=== PATIENT | female | born 1935 | race Caucasian/White ===

== ENCOUNTER → 2018-03-12 | Outpatient (CLI) | payer MEDICARE | END | disposition home or self-care (01) | LOC: CFH 10:26 | PROVIDERS: ATTEND Internal Medicine | DX: Z13.820 Encounter for screening for osteoporosis (principal); M81.0 Age-related osteoporosis without current pathological fracture; M85.80 Other specified disorders of bone density and structure, unspecified site | CPT/HCPCS: 77080 ==

== ENCOUNTER → 2021-01-01 | Outpatient (CLI) | payer MEDICARE ==
[~2021-01-01] MED LIST: CALC1CAP8 PO; FLUT9.9S NS; LEVO75TA59 PO; LOSA25TA25 PO; METR55GE2 TP; OMEG1CAP23 PO; TRAV5DRO EACHEYE; UBID100C41 PO; VIT1CAPS16 PO; [UNRECOGNIZED DRUG - CODE] TP
[2021-01-01 10:40] LABS: MICROSCOPIC NOT IND
[2021-01-01 11:01] LABS: ANION GAP 6 mmol/L (5-15); CHLORIDE 104 mmol/L (98-107)
[2021-01-01 11:02] LABS: ANION GAP 5 mmol/L (5-15); CHLORIDE 104 mmol/L (98-107)
[2021-01-01 11:03] LABS: INTERNATIONAL NORMALIZED RATIO 0.93 (0.93-1.1); PROTHROMBIN TIME 9.9 Seconds (9.6-11.5)
[2021-01-01 11:04] LABS: CREATININE 0.83 mg/dL (0.55-1.02)
[2021-01-01 11:08] LABS: ALANINE AMINOTRANSFERASE 24 U/L (12-78); ALKALINE PHOSPHATASE 56 U/L (45-117); BASOPHILS % (AUTO) 1 % (0-1); BILIRUBIN,TOTAL 0.7 mg/dL (0.2-1.0); CREATININE 0.79 mg/dL (0.55-1.02); EOSINOPHILS % (AUTO) 2 % (1-7); LYMPHOCYTES % (AUTO) 36 % (22-44); MEAN CORPUSCULAR HEMOGLOBIN 32.8 pg (27.0-34.8); MEAN PLATELET VOLUME 8.2 fL (7.4-10.4); MONOCYTES % (AUTO) 9 % (2-9); NEUTROPHILS % (AUTO) 53 % (42-75); PLATELET COUNT 180 x10^3/uL (130-400); RED BLOOD COUNT 4.39 x10^6/uL (3.82-5.3); RED CELL DISTRIBUTION WIDTH 13.3 % (9.6-15.2); TOTAL PROTEIN 7.4 g/dL (6.4-8.2)
[2021-01-01 11:09] LABS: MD NO
== END | disposition home or self-care (01) ==
LOC: STAR 09:21
PROVIDERS: ATTEND Neurological Surgery
DX: Z01.818 Encounter for other preprocedural examination (principal); M47.816 Spondylosis without myelopathy or radiculopathy, lumbar region
CPT/HCPCS: 36415; 71046; 80048; 80053; 81003; 85025; 85610; 85730; 93005

== ENCOUNTER → 2021-01-09 | Outpatient (CLI) | payer MEDICARE | END | disposition home or self-care (01) | LOC: CVU 07:32 | PROVIDERS: ATTEND Internal Medicine Cardiovascular Disease | DX: Z01.810 Encounter for preprocedural cardiovascular examination (principal); I08.0 Rheumatic disorders of both mitral and aortic valves; R94.31 Abnormal electrocardiogram [ECG] [EKG]; I11.9 Hypertensive heart disease without heart failure; I48.0 Paroxysmal atrial fibrillation | CPT/HCPCS: 78452; 93017; 93306; 93356; A9502 ==

== ENCOUNTER 2021-01-11 14:27 | Outpatient (CLI) | payer MEDICARE ==
[2021-01-19] MEDS ORDERED: OXYC1TAB14 PO (16:59)
[2021-01-19] MEDS ORDERED: TIZA-106 PO (16:59)
== END 2021-01-11 23:59 | disposition home or self-care (01) ==
LOC: STAR 14:27
PROVIDERS: ATTEND Neurological Surgery
DX: Z20.822 Contact with and (suspected) exposure to COVID-19 (principal)
CPT/HCPCS: U0003